=== PATIENT | female | born 2000 | race Asian ===

== ENCOUNTER 2025-05-25 02:32 | Inpatient (IN) | payer MEDICAID, OTHER ==
[~2025-05-25] VITALS: Ht 147.3 cm; Wt 50.9 kg
[2025-05-25 03:10] LABS: COVID AG,FIA SOURCE NASAL SWAB
[2025-05-25 03:12] LABS: PLATELET COUNT (AUTO) 318 K/uL (150-450); RED BLOOD CELL COUNT(AUTO) 4.32 MIL/uL (4.00-5.20); RED CELL DISTRIBUTION WIDTH 12.9 % (11.5-14.5); WHITE BLOOD COUNT (AUTO) 13.6 K/uL (4.5-11.0)
[2025-05-25 03:15] LABS: PH,URINE DRUG SCREEN 6.0 (5.0-8.0)
[2025-05-25 03:21] LABS: ALCOHOL, URINE DRUG SCREEN NEGATIVE (NEGATIVE); AMPHET/METH SCREEN,URINE POSITIVE (NEGATIVE); BARBITURATE SCREEN, URINE NEGATIVE (NEGATIVE); CANNABINOID SCREEN,URINE NEGATIVE (NEGATIVE); COCAINE SCREEN,URINE POSITIVE (NEGATIVE); METHADONE SCREEN, URINE NEGATIVE (NEGATIVE)
[2025-05-25 03:21] LABS: CALCIUM, TOTAL 9.8 mg/dL (8.8-10.5); CREATININE 0.92 mg/dL (0.60-1.30); GLOMERULAR FILTR. RATE CALC > 60 mL/min (>60); GLUCOSE,RANDOM 95 mg/dL (70-110); SODIUM SERUM 139 mmol/L (136-145); UREA NITROGEN, BLOOD 13 mg/dL (7-18)
[2025-05-25 03:30] LABS: SARS-COV2 (COVID) ANTIGEN,FIA Negative (Negative)
[2025-05-25 13:21] LABS: APPEARANCE,URINE HAZY (CLEAR); GLUCOSE, URINE (UA) NEGATIVE (NEGATIVE); LEUKOCYTE ESTERASE ,URINE LARGE (NEGATIVE); NITRATE,URINE NEGATIVE (NEGATIVE); OCCULT BLOOD,URINE TRACE (NEGATIVE); SPECIFIC GRAVITIY, URINE 1.016 (1.003-1.030)
[2025-05-25 13:39] LABS: SQUAMOUS EPITHELIAL CELL,UR Moderate /LPF (None Seen)
[2025-05-25 13:40] LABS: URINALYSIS COMMENT Few Trichomonas seen
[2025-05-25] MEDS: CEPHALEXIN MONOHYDRATE 500 MG CAPSULE PO ONE (14:03)
[2025-05-25] MEDS: ZOLPIDEM TARTRATE 10 MG TABLET PO PRN (18:59)
[2025-05-25] MEDS: NICOTINE 21 MG/24 HOUR PATCH TD ONE (21:08)
[2025-05-25] MEDS: LORazepam 2 MG/ML VIAL IM ONE (21:31)
[2025-05-26 06:59] LABS: PLATELET COUNT (AUTO) 248 K/uL (150-450); RED BLOOD CELL COUNT(AUTO) 4.00 MIL/uL (4.00-5.20); RED CELL DISTRIBUTION WIDTH 12.7 % (11.5-14.5); WHITE BLOOD COUNT (AUTO) 7.2 K/uL (4.5-11.0)
[2025-05-26 07:20] LABS: ASPARTATE AMINOTRANSFERASE 68 U/L (15-37); CALCIUM, TOTAL 8.9 mg/dL (8.8-10.5); CHOL/HDL RATIO 2.4 (3.9-5.7); CREATININE 0.72 mg/dL (0.60-1.30); GLOMERULAR FILTR. RATE CALC > 60 mL/min (>60); GLUCOSE,RANDOM 75 mg/dL (70-110); LDL CHOL (CALC.) 82 mg/dL (0-130); SODIUM SERUM 143 mmol/L (136-145); TOTAL PROTEIN, SERUM 6.7 g/dL (6.4-8.2); UREA NITROGEN, BLOOD 16 mg/dL (7-18)
[2025-05-26] MEDS ORDERED: MAG HYDROX/ALUMINUM HYD/SIMETH ES 30 ML SUSPENSION UDCUP PO PRN (09:45)
[2025-05-26] MEDS ORDERED: ONDANSETRON 4 MG TABLET PO PRN (09:45)
[2025-05-26] MEDS ORDERED: GuaiFENesin/D-METHORPHAN [SUGAR-FREE] 200-20MG/10 ML SYRUP UDCUP PO PRN (09:45)
[2025-05-26] MEDS ORDERED: IBUPROFEN 400 MG TABLET PO PRN (09:45)
[2025-05-26] MEDS ORDERED: ACETAMINOPHEN 325 MG TABLET PO PRN (09:45)
[2025-05-26] MEDS ORDERED: MAGNESIUM HYDROXIDE SUSPENSION 30 ML UDCUP PO PRN (09:45)
[2025-05-26] MEDS ORDERED: LOPERAMIDE HCL 2 MG CAPSULE PO PRN (09:45)
[2025-05-26] MEDS ORDERED: DOCUSATE SODIUM 100 MG CAPSULE PO PRN (09:45)
[2025-05-26] MEDS ORDERED: ALBUTEROL SULFATE HFA 90 MCG/PUFF 8 GM INHALER IH PRN (09:45)
[2025-05-26] MEDS ORDERED: PETROLATUM,WHITE 28 GM JELLY TP PRN (09:45)
[2025-05-26] MEDS: CEPHALEXIN MONOHYDRATE 500 MG CAPSULE PO SCH (12:43)
[2025-05-26 21:00] VITALS: BP 89/56; PULSE 80; RESP 16; TEMP 96.9
[2025-05-27 08:00] VITALS: BP 104/70; PULSE 82; RESP 17; TEMP 99.1; O2SAT 98
[2025-05-27 08:48] LABS: CHOL/HDL RATIO 2.5 (3.9-5.7); LDL CHOL (CALC.) 85.0 mg/dL (0-130)
[2025-05-27] MEDS: NICOTINE 14 MG/24 HOUR PATCH TD PRN (17:22)
[2025-05-27 22:34] VITALS: BP 106/63; PULSE 94; RESP 18; O2SAT 100
[2025-05-28 08:25] VITALS: BP 100/64; PULSE 67; RESP 17; TEMP 97.6
[2025-05-28 20:45] VITALS: BP 109/63; PULSE 62; RESP 18; TEMP 98; O2SAT 100
[2025-05-28 22:08] VITALS: BP 110/70; PULSE 66; RESP 18; O2SAT 97
[2025-05-28] MEDS ORDERED: NICOTINE POLACRILEX 2 MG LOZENGE PO PRN (22:15)
[2025-05-29 10:20] VITALS: BP 100/63; PULSE 65; RESP 17; TEMP 97.9; O2SAT 100
[2025-05-29] MEDS ORDERED: FLUO-418 PO (11:59)
[2025-05-29] MEDS ORDERED: CEPH-558 PO ×2 (12:05→12:17)
== END 2025-05-29 13:30 | disposition home or self-care (01) | DRG 751 ==
LOC: EMS 02:44 → EDH 16:19 → 3EI 05-26 00:20
PROVIDERS: ADMIT Psychiatry & Neurology Psychiatry; ATTEND Psychiatry & Neurology Psychiatry
PROC: GZ56ZZZ Individual Psychotherapy, Supportive (ICD-10-PCS; principal; 2025-05-26)
PROC: GZHZZZZ Group Psychotherapy (ICD-10-PCS; 2025-05-27)
DX: F33.2 Major depressive disorder, recurrent severe without psychotic features (principal); R45.851 Suicidal ideations; I95.9 Hypotension, unspecified; N39.0 Urinary tract infection, site not specified; F15.10 Other stimulant abuse, uncomplicated; Z20.822 Contact with and (suspected) exposure to COVID-19; F14.10 Cocaine abuse, uncomplicated
CPT/HCPCS: 80048; 80053; 80061; 80307; 81001; 83036; 84436; 84439; 84443; 85025; 87086; 87147; 99285; G0378; G0480; J1200; J1630; J2060